=== PATIENT | male | born 1995 | race Caucasian/White ===

== ENCOUNTER 2021-03-15 09:45 | Emergency (ER) | payer OTHER ==
[~2021-03-15] VITALS: Ht 172.7 cm; Wt 81.6 kg
[2021-03-15] MEDS ORDERED: DICLOFENAC POTA50 MG PO (14:02)
== END 2021-03-15 14:12 ==
LOC: ER 09:45
DX: S60.00XA Contusion of unspecified finger without damage to nail, initial encounter (principal); X58.XXXA Exposure to other specified factors, initial encounter; Y93.39 Activity, other involving climbing, rappelling and jumping off; Y92.828 Other wilderness area as the place of occurrence of the external cause; Y99.8 Other external cause status